=== PATIENT | female | born 1980 | race African-American/Black ===

== ENCOUNTER 2018-01-11 13:17 | Outpatient (CLI) | payer OTHER ==
--- NOTE | 2018-01-11 14:07 | RAD ---
LEFT FOOT THREE VIEWS: Comparison: 04-17-10 History: Pain. FINDINGS: Lisfranc alignment is maintained. Joint spaces are preserved. No fracture. IMPRESSION: No fracture. POS: JOHN
== END 2018-01-11 13:18 | disposition home or self-care (01) ==
LOC: RAD-FRANK 13:17
PROVIDERS: ATTEND Internal Medicine
DX: S99.929A Unspecified injury of unspecified foot, initial encounter (principal)

== ENCOUNTER 2018-04-14 08:37 | Emergency (ER) | payer SELFPAY ==
[2018-04-14] MEDS ORDERED: HYDROcodone/Acetaminophen 7.5/325 mg Tablet ONE (09:31)
--- NOTE | 2018-04-14 09:36 | RAD ---
RADIOGRAPH LEFT ANKLE 3 VIEWS: Date: 04/14/18 HISTORY: 37-year-old female status post traumatic injury to the left ankle. FINDINGS: There is a tiny triangular fracture fragment mildly inferiorly displaced from the distal tip of the l ateral malleolus. There is overlying lateral soft tissue swelling, and also mild anterior soft tissue swelling. Ankle mortise is symmetrical. The talar dome is maintained. There is no other fracture. IMPRESSION: Acute, traumatic, mildly displaced avulsion fracture of distal tip of lateral malleolus. POS: JOHN
== END 2018-04-14 10:14 | disposition home or self-care (01) ==
LOC: ERS 08:37
DX: S82.62XA Displaced fracture of lateral malleolus of left fibula, initial encounter for closed fracture (principal); I10 Essential (primary) hypertension; J45.909 Unspecified asthma, uncomplicated; X50.0XXA Overexertion from strenuous movement or load, initial encounter

== ENCOUNTER 2018-07-10 18:24 | Emergency (ER) | payer SELFPAY | END 2018-07-10 19:07 | disposition home or self-care (01) | LOC: ERS 18:24 | DX: H10.9 Unspecified conjunctivitis (principal); I10 Essential (primary) hypertension; J45.909 Unspecified asthma, uncomplicated | CPT/HCPCS: 99283 ==

== ENCOUNTER 2018-07-12 12:15 | Emergency (ER) | payer SELFPAY ==
[2018-07-12] MEDS ORDERED: Fluorescein Opthalmic Strip ONE (13:03)
[2018-07-12] MEDS ORDERED: Proparacaine 0.5% Opth 15 ML BOT ONE (13:03)
[2018-07-12] MEDS ORDERED: Sulfameth/Trimethoprim DS 800-160mg TAB ONE (13:48)
[2018-07-12] MEDS ORDERED: levETIRAcetam 500 MG/100 ML PREMIX BAG ONE (13:48)
[2018-07-12] MEDS ORDERED: Cephalexin 250 MG CAP ONE (13:49)
== END 2018-07-12 13:54 | disposition home or self-care (01) ==
LOC: ERS 12:15
DX: H11.423 Conjunctival edema, bilateral (principal); H10.9 Unspecified conjunctivitis; I10 Essential (primary) hypertension; J45.909 Unspecified asthma, uncomplicated
CPT/HCPCS: 99282; J1953

== ENCOUNTER 2018-10-27 17:49 | Emergency (ER) | payer SELFPAY ==
[2018-10-27 18:56] LABS: Hemoglobin 13.4 g/dL (12.0-16.0); Red Blood Cell (RBC) Count 4.71 mill/uL (4.20-5.40); White Blood Cell (WBC) Count 6.9 thou/uL (4.8-10.8)
[2018-10-27 18:57] LABS: #Basophils 0.1 thou/uL (0.0-0.2); #Eosinphils 0.1 thou/uL (0.0-0.7); #Lymphocytes 1.8 thou/uL (1.20-3.40); #Monocytes 0.3 thou/uL (0.11-0.59); #Neutrophils 4.7 thou/uL (1.40-6.50); %Basophils 0.8 % (0.0-1.0); %Eosinophils 1.2 % (0.0-10.0); %Lymphocytes 25.5 % (21.0-51.0); %Monocytes 3.8 % (0.0-10.0); %Neutrophils 68.8 % (42.0-75.0); Mean Corpuscular HGB CONC 31.8 g/dL (32.0-36.0); Mean Corpuscular Hemoglobin 28.5 pg (27.0-31.0); Mean Corpuscular Volume 89.6 fL (78.0-98.0); Mean Platelet Volume 8.1 fL (7.4-10.4); Platelet Count 228 thou/uL (130-400); RBC Distribution Width 11.6 % (11.5-14.5)
[2018-10-27 19:17] LABS: ALT (SGPT) 11 U/L (8-55); AST (SGOT) 11 U/L (5-34); Albumin 4.4 g/dL (3.5-5.0); Alkaline Phosphatase 58 U/L (40-150); Anion Gap 12 mmol/L (10-20); BUN (Urea Nitrogen) 8 mg/dL (7.0-18.7); Bilirubin, Total 0.3 mg/dL (0.2-1.2); Calc. Creatinine Clearance 0 mL/min (70-130); Calcium 9.8 mg/dL (7.8-10.44); Carbon Dioxide 25 mmol/L (22-29); Chloride 105 mmol/L (98-107); Estimated GFR-MDRD 73; Globulin 3.7 g/dL (2.4-3.5); Glucose 82 mg/dL (70-105); Potassium 3.9 mmol/L (3.5-5.1); Protein, Total 8.1 g/dL (6.0-8.3); Sodium 138 mmol/L (136-145)
[2018-10-27] MEDS ORDERED: Acetaminophen 325 MG Suppository ONE (19:52)
[2018-10-27] MEDS ORDERED: Acetaminophen 325 MG TAB ONE (19:53)
[2018-10-27] MEDS ORDERED: diphenhydrAMINE 50 MG/ML VIAL ONE (20:32)
[2018-10-27] MEDS ORDERED: Metoclopramide HCl 10 MG/2 ML VIAL ONE (20:46)
== END 2018-10-27 21:42 | disposition home or self-care (01) ==
LOC: ERS 17:49
DX: R51 Headache (principal); J45.909 Unspecified asthma, uncomplicated; I10 Essential (primary) hypertension
CPT/HCPCS: 36415; 80053; 85025; 96361; 96374; 96375; J1200; J2765

== ENCOUNTER 2019-01-25 00:20 | Emergency (ER) | payer SELFPAY ==
[2019-01-25 01:08] LABS: #Monocytes 0.4 thou/uL (0.11-0.59); #Neutrophils 5.4 thou/uL (1.40-6.50); %Basophils 0.4 % (0.0-1.0); %Eosinophils 0.2 % (0.0-10.0); %Lymphocytes 14.1 % (21.0-51.0); %Monocytes 5.6 % (0.0-10.0); %Neutrophils 79.8 % (42.0-75.0); Hemoglobin 14.8 g/dL (12.0-16.0); Mean Corpuscular HGB CONC 32.5 g/dL (32.0-36.0); Mean Corpuscular Hemoglobin 28.2 pg (27.0-31.0); Mean Corpuscular Volume 86.9 fL (78.0-98.0); Mean Platelet Volume 8.2 fL (7.4-10.4); Platelet Count 230 thou/uL (130-400); RBC Distribution Width 11.3 % (11.5-14.5); Red Blood Cell (RBC) Count 5.25 mill/uL (4.20-5.40); White Blood Cell (WBC) Count 6.7 thou/uL (4.8-10.8)
[2019-01-25 01:17] LABS: BHCG - Serum Negative (NEGATIVE); Pregs Control Background? CLEAR/WHITE (CLR/WHITE); Pregs Control Bar Appear? YES (CONTROL BAR)
[2019-01-25 01:30] LABS: ALT (SGPT) 11 U/L (8-55); AST (SGOT) 12 U/L (5-34); Albumin 4.6 g/dL (3.5-5.0); Alkaline Phosphatase 68 U/L (40-150); Anion Gap 14 mmol/L (10-20); BUN (Urea Nitrogen) 11 mg/dL (7.0-18.7); Bilirubin, Total 0.6 mg/dL (0.2-1.2); Calc. Creatinine Clearance 0 mL/min (70-130); Calcium 9.7 mg/dL (7.8-10.44); Carbon Dioxide 23 mmol/L (22-29); Chloride 101 mmol/L (98-107); Estimated GFR-MDRD 74; Globulin 4.1 g/dL (2.4-3.5); Glucose 119 mg/dL (70-105); Lipase 32 U/L (8-78); Potassium 3.8 mmol/L (3.5-5.1); Protein, Total 8.7 g/dL (6.0-8.3); Sodium 134 mmol/L (136-145)
[2019-01-25] MEDS ORDERED: Metoclopramide HCl 10 MG/2 ML VIAL ONE (01:42)
[2019-01-25] MEDS ORDERED: Dicyclomine 20 MG TAB ONE (01:42)
[2019-01-25 02:48] LABS: Bilirubin Small (Negative); Blood, Urine Negative (Negative); Clarity CLOUDY (Clear); Glucose, Urine (Dipstick) Negative (Negative); Leukocyte Negative (Negative); Nitrite Negative (Negative); Protein, Urine (Dipstick) Trace mg/dL (Neg-Trace); Specific Gravity, Urine 1.029 (1.002-1.036)
== END 2019-01-25 04:23 | disposition home or self-care (01) ==
LOC: ERS 00:20
DX: R11.2 Nausea with vomiting, unspecified (principal); R19.7 Diarrhea, unspecified; I10 Essential (primary) hypertension; Z79.899 Other long term (current) drug therapy
CPT/HCPCS: 36415; 80053; 81003; 83690; 84703; 85025; 87086; 96365; 96372; J0500; J2765

== ENCOUNTER 2019-04-09 16:03 | Emergency (ER) | payer MEDICAID, SELFPAY ==
[2019-04-09] MEDS ORDERED: traMADol HCl 50 MG TAB ONE (16:20)
--- NOTE | 2019-04-09 16:32 | RAD ---
XR Foot Rt 3 View STANDARD History: Injury Comparison: Radiograph 2014 Findings: No acute fracture or malalignment. Os perineum is present. Soft tissues are unremarkable. L isfranc interval is maintained. Impression: No acute osseous abnormality.
== END 2019-04-09 16:49 | disposition home or self-care (01) ==
LOC: ERS 16:03
DX: S90.31XA Contusion of right foot, initial encounter (principal); I10 Essential (primary) hypertension; J45.909 Unspecified asthma, uncomplicated; W20.8XXA Other cause of strike by thrown, projected or falling object, initial encounter

== ENCOUNTER 2019-11-02 13:29 | Outpatient (CLI) | payer MEDICAID ==
--- NOTE | 2019-11-02 13:58 | ULT ---
TRANSABDOMINAL TRANSVAGINAL PELVIC ULTRASOUND DATE:: 11/02/2019 12:00 AM CLINICAL HISTORY: Abnormal uterine bleeding. COMPARISON: None. TECHNIQUE: Grayscale, color Doppler and spectral Doppler images were obtained of the pelvis see a tra nsabdominal and transvaginal approach FINDINGS: UTERUS: Size: 9.4 x 5.3 x 6.4 Mass: None Cervix: Within normal limits Endometrial Thickness: 13.1 mm. OVARIES: Size: Right measures 4.1 x 2.1 x 3.9 cm; Left measures 4.0 x 2.2 x 1.7 cm Mass: There is a right ovarian cyst measuring 2.2 x 1.9 cm. Flow: Normal CUL-DE-SAC: Minimal free fluid IMPRESSION: Right ovarian follicular cyst. Mild thickening of the endometrial stripe. Recommend correlation with phase of menstruation. Minimal free fluid in the cul-de-sac is likely physiologic in nature.
== END 2019-11-02 13:30 | disposition home or self-care (01) ==
LOC: BICULT 13:29
PROVIDERS: ATTEND Nurse Practitioner Women's Health
DX: N93.9 Abnormal uterine and vaginal bleeding, unspecified (principal); N83.01 Follicular cyst of right ovary; R93.89 Abnormal findings on diagnostic imaging of other specified body structures
CPT/HCPCS: 76856

== ENCOUNTER 2020-06-02 11:46 | Emergency (ER) | payer MEDICAID, SELFPAY ==
[2020-06-02 12:23] LABS: Bilirubin Negative (Negative); Blood, Urine Negative (Negative); Clarity Clear (Clear); Glucose, Urine (Dipstick) Normal (Negative); Ketone, Urine Negative (Negative); Leukocyte Negative Leu/uL (Negative); Nitrite Negative (Negative); Protein, Urine (Dipstick) Negative (Neg-Trace); Specific Gravity, Urine 1.014 (1.002-1.036); Urobilinogen Normal mg/dL (Less than 2)
[2020-06-02 12:24] LABS: Pregnancy Test - Urine (BHCG) Negative (Negative); Pregu Control Background? CLEAR/WHITE (CLR/WHITE); Pregu Control Bar Appear? YES (CONTROL BAR); Specific Gravity 1.014 (1.002-1.036)
[2020-06-02] MEDS ORDERED: Diazepam 5 MG TAB ONE (12:25)
[2020-06-02] MEDS ORDERED: Ketorolac Tromethamine 30 MG/ML VIAL ONE (12:26)
[2020-06-02] MEDS ORDERED: Dexamethasone 10 MG/ML VIAL ONE (12:26)
--- NOTE | 2020-06-02 13:12 | RAD ---
RADIOGRAPH LUMBAR SPINE 3 VIEWS: DATE: 06/02/2020. HISTORY: A 39-year-old female with low back pain and left lumbar radiculopathy. FINDINGS: Alignment is normal. Vertebral body heights and disc spaces are maintained. There is no evidence of fracture, significant osteophytes, or any other focal osseous abnormality. IMPRESSION: Normal. jn [] POS: JIN
== END 2020-06-02 13:12 | disposition home or self-care (01) ==
LOC: ERS 11:46
DX: M54.42 Lumbago with sciatica, left side (principal); I10 Essential (primary) hypertension; J45.909 Unspecified asthma, uncomplicated
CPT/HCPCS: 72100; 81003; 81025; 87086; 96372; J1100; J1885

== ENCOUNTER 2021-02-04 14:57 | Emergency (ER) | payer SELFPAY ==
[2021-02-04] MEDS ORDERED: Morphine 4 MG/ML VIAL ONE (15:41)
[2021-02-04 16:15] LABS: Bilirubin Negative (Negative); Blood, Urine Negative (Negative); Glucose, Urine (Dipstick) Negative (Negative); Ketone, Urine Negative (Negative); Leukocyte Negative (Negative); Nitrite Negative (Negative); Protein, Urine (Dipstick) Negative (Neg-Trace); Urobilinogen 0.2 mg/dL (Less than 2)
[2021-02-04 16:19] LABS: Bacteria/HPF None Seen HPF (None Seen); Clarity Clear (Clear); RBC/HPF 0-3 HPF (0-3); WBC/HPF 0-3 HPF (0-3)
[2021-02-04 16:22] LABS: #Basophils 0.1 thou/uL (0.0-0.2); #Eosinphils 0.2 thou/uL (0.0-0.7); #Monocytes 0.4 thou/uL (0.11-0.59); #Neutrophils 3.9 thou/uL (1.40-6.50); %Basophils 1.1 % (0.0-1.0); %Eosinophils 2.9 % (0.0-10.0); %Lymphocytes 39.2 % (21.0-51.0); %Monocytes 4.9 % (0.0-10.0); %Neutrophils 51.9 % (42.0-75.0); Hemoglobin 13.8 g/dL (12.0-16.0); Mean Corpuscular HGB CONC 32.5 g/dL (32.0-36.0); Mean Corpuscular Hemoglobin 28.4 pg (27.0-31.0); Mean Corpuscular Volume 87.6 fL (78.0-98.0); Mean Platelet Volume 8.5 fL (7.4-10.4); Platelet Count 247 thou/uL (130-400); RBC Distribution Width 11.4 % (11.5-14.5); Red Blood Cell (RBC) Count 4.86 mill/uL (4.20-5.40); White Blood Cell (WBC) Count 7.6 thou/uL (4.8-10.8)
[2021-02-04 16:31] LABS: BHCG - Serum Negative (NEGATIVE); Pregs Control Background? CLEAR/WHITE (CLR/WHITE); Pregs Control Bar Appear? YES (CONTROL BAR); Specific Gravity, Urine 1.007 (1.002-1.036)
[2021-02-04] MEDS ORDERED: cefTRIAXone\\ROCEPHIN 1 GM VIAL ONE (17:09)
[2021-02-04] MEDS ORDERED: Azithromycin 250 MG TAB ONE (17:09)
[2021-02-04 17:27] LABS: ALT (SGPT) 25 U/L (8-55); AST (SGOT) 19 U/L (5-34); Albumin 4.5 g/dL (3.5-5.0); Alkaline Phosphatase 80 U/L (40-110); Anion Gap 13 mmol/L (10-20); BUN (Urea Nitrogen) 7 mg/dL (7.0-18.7); Bilirubin, Total 0.5 mg/dL (0.2-1.2); CK (CPK) 143 U/L (29-168); Calc. Creatinine Clearance 0 mL/min (70-130); Calcium 9.5 mg/dL (7.8-10.44); Carbon Dioxide 24 mmol/L (22-29); Chloride 104 mmol/L (98-107); Glucose 81 mg/dL (70-105); Lipase 53 U/L (8-78); Potassium 3.6 mmol/L (3.5-5.1); Protein, Total 8.5 g/dL (6.0-8.3); Sodium 137 mmol/L (136-145)
[2021-02-06 22:55] LABS: Chlamydia by PCR Not Detected (NotDetected); GC by PCR Not Detected (NotDetected)
== END 2021-02-04 18:00 | disposition home or self-care (01) ==
LOC: ERS 14:57
DX: N72 Inflammatory disease of cervix uteri (principal); R10.2 Pelvic and perineal pain; I10 Essential (primary) hypertension; J45.909 Unspecified asthma, uncomplicated
CPT/HCPCS: 76856; 80053; 81003; 82550; 83690; 84703; 85025; 87480; 87491; 87510; 87591; 87660; 96365; 96375; J0696; J2270

== ENCOUNTER 2021-02-18 20:59 | Emergency (ER) | payer SELFPAY ==
[2021-02-18 21:51] LABS: #Eosinphils 0.2 thou/uL (0.0-0.7); #Lymphocytes 2.7 thou/uL (1.20-3.40); #Monocytes 0.3 thou/uL (0.11-0.59); #Neutrophils 3.6 thou/uL (1.40-6.50); %Basophils 0.5 % (0.0-1.0); %Eosinophils 3.3 % (0.0-10.0); %Lymphocytes 39.2 % (21.0-51.0); %Monocytes 4.6 % (0.0-10.0); %Neutrophils 52.4 % (42.0-75.0); Hemoglobin 12.9 g/dL (12.0-16.0); Mean Corpuscular HGB CONC 33.8 g/dL (32.0-36.0); Mean Corpuscular Hemoglobin 29.7 pg (27.0-31.0); Mean Corpuscular Volume 87.7 fL (78.0-98.0); Mean Platelet Volume 8.7 fL (7.4-10.4); Platelet Count 212 thou/uL (130-400); RBC Distribution Width 11.8 % (11.5-14.5); Red Blood Cell (RBC) Count 4.35 mill/uL (4.20-5.40); White Blood Cell (WBC) Count 6.8 thou/uL (4.8-10.8)
[2021-02-18 21:55] LABS: Bacteria/HPF None Seen HPF (None Seen); Bilirubin Negative (Negative); Blood, Urine 2+ (Negative); Clarity Clear (Clear); Glucose, Urine (Dipstick) Normal (Negative); Ketone, Urine Negative (Negative); Leukocyte Negative Leu/uL (Negative); Nitrite Negative (Negative); Protein, Urine (Dipstick) 20 mg/dL (Neg-Trace); RBC/HPF 0-3 HPF (0-3); Specific Gravity, Urine 1.034 (1.002-1.036); Urobilinogen Normal mg/dL (Less than 2); pH, Urine 5.5 (5.0-9.0)
[2021-02-18 22:00] LABS: BHCG - Serum Negative (NEGATIVE); Pregs Control Background? CLEAR/WHITE (CLR/WHITE); Pregs Control Bar Appear? YES (CONTROL BAR)
[2021-02-18 22:08] LABS: ALT (SGPT) 20 U/L (8-55); AST (SGOT) 17 U/L (5-34); Albumin 4.2 g/dL (3.5-5.0); Alkaline Phosphatase 66 U/L (40-110); Anion Gap 10 mmol/L (10-20); BUN (Urea Nitrogen) 8 mg/dL (7.0-18.7); Bilirubin, Total 0.3 mg/dL (0.2-1.2); Calc. Creatinine Clearance 0 mL/min (70-130); Calcium 8.8 mg/dL (7.8-10.44); Carbon Dioxide 26 mmol/L (22-29); Chloride 104 mmol/L (98-107); Globulin 3.7 g/dL (2.4-3.5); Glucose 117 mg/dL (70-105); Lipase 60 U/L (8-78); Potassium 3.4 mmol/L (3.5-5.1); Protein, Total 7.9 g/dL (6.0-8.3); Sodium 137 mmol/L (136-145)
== END 2021-02-18 22:38 | disposition home or self-care (01) ==
LOC: ERS 20:59
DX: R10.9 Unspecified abdominal pain (principal); R10.813 Right lower quadrant abdominal tenderness; I10 Essential (primary) hypertension; J45.909 Unspecified asthma, uncomplicated
CPT/HCPCS: 74176; 80053; 81003; 81015; 83690; 84703; 85025

== ENCOUNTER 2021-08-27 22:23 | Emergency (ER) | payer MEDICAID, SELFPAY ==
[2021-08-28] MEDS ORDERED: Metoclopramide HCl 10 MG TAB ONE (01:19)
[2021-08-28] MEDS ORDERED: diphenhydrAMINE 25 MG CAP ONE (01:19)
[2021-08-28 06:10] LABS: SARS-CoV-2 NAA Rapid Test DETECTED (NotDetected)
== END 2021-08-28 02:04 | disposition home or self-care (01) ==
LOC: ERS 22:23
DX: U07.1 COVID-19 (principal); I10 Essential (primary) hypertension; J45.909 Unspecified asthma, uncomplicated
CPT/HCPCS: 0240U; 99284

== ENCOUNTER 2022-02-02 12:54 | Emergency (ER) | payer MEDICAID, SELFPAY ==
[2022-02-02 13:37] LABS: #Basophils 0.1 thou/uL (0.0-0.2); #Eosinphils 0.2 thou/uL (0.0-0.7); #Lymphocytes 1.9 thou/uL (1.20-3.40); #Monocytes 0.2 thou/uL (0.11-0.59); #Neutrophils 2.8 thou/uL (1.40-6.50); %Eosinophils 3.3 % (0.0-10.0); %Lymphocytes 36.6 % (21.0-51.0); %Monocytes 4.6 % (0.0-10.0); %Neutrophils 54.4 % (42.0-75.0); Hemoglobin 13.5 g/dL (12.0-16.0); Mean Corpuscular HGB CONC 31.8 g/dL (32.0-36.0); Mean Corpuscular Volume 88.3 fL (78.0-98.0); Mean Platelet Volume 8.1 fL (7.4-10.4); Platelet Count 244 thou/uL (130-400); RBC Distribution Width 11.7 % (11.5-14.5); White Blood Cell (WBC) Count 5.2 thou/uL (4.8-10.8)
[2022-02-02 14:04] LABS: ALT (SGPT) 16 U/L (8-55); AST (SGOT) 14 U/L (5-34); Albumin 4.3 g/dL (3.5-5.0); Alkaline Phosphatase 70 U/L (40-110); Anion Gap 14 mmol/L (10-20); BUN (Urea Nitrogen) 7 mg/dL (7.0-18.7); Bilirubin, Total 0.5 mg/dL (0.2-1.2); Calc. Creatinine Clearance 0 mL/min (70-130); Carbon Dioxide 20 mmol/L (22-29); Chloride 106 mmol/L (98-107); Globulin 3.6 g/dL (2.4-3.5); Glucose 90 mg/dL (70-105); Lipase 45 U/L (8-78); Protein, Total 7.9 g/dL (6.0-8.3); Sodium 136 mmol/L (136-145)
== END 2022-02-02 15:19 | disposition home or self-care (01) ==
LOC: ERS 12:54
DX: R07.89 Other chest pain (principal); F43.9 Reaction to severe stress, unspecified; I10 Essential (primary) hypertension; J45.909 Unspecified asthma, uncomplicated
CPT/HCPCS: 36415; 71045; 80053; 83690; 84484; 85025; 93005; 94760

== ENCOUNTER 2022-04-18 10:24 | Emergency (ER) | payer SELFPAY ==
[2022-04-18] MEDS ORDERED: Lidocaine Viscous Sol 2% 15 ml UD Cup ONE (11:15)
[2022-04-18] MEDS ORDERED: Acetaminophen 500 MG TAB ONE (11:36)
== END 2022-04-18 13:34 | disposition home or self-care (01) ==
LOC: ERS 10:24
DX: K04.7 Periapical abscess without sinus (principal); K02.9 Dental caries, unspecified; I10 Essential (primary) hypertension
CPT/HCPCS: 70487

== ENCOUNTER 2022-05-23 16:05 | Emergency (ER) | payer SELFPAY ==
[2022-05-23] MEDS ORDERED: Dexamethasone 4 MG TAB ONE (16:46)
== END 2022-05-23 17:27 | disposition home or self-care (01) ==
LOC: ERS 16:05
DX: L25.9 Unspecified contact dermatitis, unspecified cause (principal); I10 Essential (primary) hypertension
CPT/HCPCS: 99282; J8540

== ENCOUNTER 2022-10-05 11:31 | Emergency (ER) | payer MEDICAID, SELFPAY ==
[2022-10-05 13:04] LABS: #Eosinphils 0.1 thou/uL (0.0-0.7); #Lymphocytes 2.2 thou/uL (1.20-3.40); #Monocytes 0.3 thou/uL (0.11-0.59); #Neutrophils 2.7 thou/uL (1.40-6.50); %Basophils 0.4 % (0.0-1.0); %Lymphocytes 40.8 % (21.0-51.0); %Monocytes 5.5 % (0.0-10.0); %Neutrophils 51.3 % (42.0-75.0); Hemoglobin 13.6 g/dL (12.0-16.0); Mean Corpuscular HGB CONC 31.8 g/dL (32.0-36.0); Mean Corpuscular Hemoglobin 27.5 pg (27.0-31.0); Mean Corpuscular Volume 86.4 fl (78.0-98.0); Mean Platelet Volume 9.3 fL (7.4-10.4); Platelet Count 195 10x3/uL (130-400); RBC Distribution Width 11.7 % (11.5-14.5); Red Blood Cell (RBC) Count 4.97 mill/uL (4.20-5.40); White Blood Cell (WBC) Count 5.3 10x3/uL (4.8-10.8)
[2022-10-05 13:16] LABS: BHCG - Serum Negative (NEGATIVE); Pregs Control Background? CLEAR/WHITE (CLR/WHITE); Pregs Control Bar Appear? YES (CONTROL BAR)
[2022-10-05 13:25] LABS: ALT (SGPT) 35 U/L (8-55); AST (SGOT) 23 U/L (5-34); Albumin 4.5 g/dL (3.5-5.0); Alkaline Phosphatase 93 U/L (40-110); Anion Gap 11 mmol/L (10-20); BUN (Urea Nitrogen) 10 mg/dL (7.0-18.7); Bilirubin, Total 0.3 mg/dL (0.2-1.2); Calc. Creatinine Clearance 0 mL/min (70-130); Calcium 9.8 mg/dL (7.8-10.44); Carbon Dioxide 20 mmol/L (22-29); Chloride 105 mmol/L (98-107); Estimated GFR 52; Globulin 4.2 g/dL (2.4-3.5); Glucose 366 mg/dL (70-105); Potassium 4.3 mmol/L (3.5-5.1); Protein, Total 8.7 g/dL (6.0-8.3); Sodium 132 mmol/L (136-145)
[2022-10-05] MEDS ORDERED: diphenhydrAMINE 50 MG/ML VIAL ONE (15:11)
[2022-10-05] MEDS ORDERED: diphenhydrAMINE 25 MG CAP ONE (15:11)
[2022-10-05] MEDS ORDERED: Metoclopramide HCl 10 MG/2 ML VIAL ONE (15:11)
== END 2022-10-05 16:30 | disposition home or self-care (01) ==
LOC: ERS 11:31
DX: E11.9 Type 2 diabetes mellitus without complications (principal); I10 Essential (primary) hypertension
CPT/HCPCS: 36415; 36416; 71045; 80053; 84484; 84703; 85025; 93005; 96374; 96375; J1200; J2765

== ENCOUNTER 2022-10-10 03:10 | Emergency (ER) | payer MEDICAID, SELFPAY ==
[2022-10-10] MEDS ORDERED: Morphine 4 MG/ML VIAL ONE (03:39)
[2022-10-10] MEDS ORDERED: Ondansetron PF 4 MG/2 ML Vial ONE (03:39)
[2022-10-10 04:11] LABS: #Eosinphils 0.1 thou/uL (0.0-0.7); #Lymphocytes 1.4 thou/uL (1.20-3.40); #Monocytes 0.3 thou/uL (0.11-0.59); #Neutrophils 2.9 thou/uL (1.40-6.50); %Basophils 0.4 % (0.0-1.0); %Eosinophils 2.6 % (0.0-10.0); %Lymphocytes 29.5 % (21.0-51.0); %Neutrophils 61.5 % (42.0-75.0); Mean Corpuscular HGB CONC 33.6 g/dL (32.0-36.0); Mean Corpuscular Hemoglobin 29.2 pg (27.0-31.0); Mean Corpuscular Volume 86.9 fl (78.0-98.0); Mean Platelet Volume 9.2 fL (7.4-10.4); Platelet Count 180 10x3/uL (130-400); RBC Distribution Width 11.6 % (11.5-14.5); Red Blood Cell (RBC) Count 4.47 mill/uL (4.20-5.40); White Blood Cell (WBC) Count 4.7 10x3/uL (4.8-10.8)
[2022-10-10 04:39] LABS: ALT (SGPT) 41 U/L (8-55); AST (SGOT) 31 U/L (5-34); Albumin 4.2 g/dL (3.5-5.0); Alkaline Phosphatase 85 U/L (40-110); Anion Gap 15 mmol/L (10-20); BUN (Urea Nitrogen) 13 mg/dL (7.0-18.7); Bilirubin, Total 0.4 mg/dL (0.2-1.2); Calc. Creatinine Clearance 0 mL/min (70-130); Calcium 9.5 mg/dL (7.8-10.44); Carbon Dioxide 21 mmol/L (22-29); Chloride 102 mmol/L (98-107); Estimated GFR 61; Globulin 3.6 g/dL (2.4-3.5); Glucose 322 mg/dL (70-105); Lipase 68 U/L (8-78); Magnesium 1.9 mg/dL (1.6-2.6); Potassium 4.3 mmol/L (3.5-5.1); Protein, Total 7.8 g/dL (6.0-8.3); Sodium 134 mmol/L (136-145)
[2022-10-10 04:52] LABS: Bacteria/HPF 1+ HPF (None Seen); Bilirubin Negative (Negative); Blood, Urine 1+ (Negative); Clarity Clear (Clear); Glucose, Urine (Dipstick) 500 mg/dL (Negative); Ketone, Urine Negative (Negative); Leukocyte Negative Leu/uL (Negative); Nitrite Negative (Negative); Protein, Urine (Dipstick) 20 mg/dL (Neg-Trace); RBC/HPF None Seen HPF (0-3); Specific Gravity, Urine 1.011 (1.002-1.036); Squamous Epithelial 0-3 HPF (0-3); Urobilinogen Normal mg/dL (Less than 2); WBC/HPF 0-3 HPF (0-3)
[2022-10-10 05:05] LABS: SARS-CoV-2 NAA Rapid Test Not Detected (NotDetected)
[2022-10-10] MEDS ORDERED: HYDROcodone/Acetaminophen 5/325 mg Tablet ONE (05:11)
== END 2022-10-10 05:19 | disposition home or self-care (01) ==
LOC: ERS 03:10
DX: R07.89 Other chest pain (principal); I10 Essential (primary) hypertension; E11.9 Type 2 diabetes mellitus without complications; Z20.822 Contact with and (suspected) exposure to COVID-19
CPT/HCPCS: 36415; 71045; 80053; 81003; 81015; 83690; 83735; 83880; 84484; 85025; 93005; 96374; 96375; J2270; J2405; U0002

== ENCOUNTER 2023-08-02 09:12 | Outpatient (CLI) | payer MEDICAID | END 2023-08-02 09:13 | disposition home or self-care (01) | LOC: BICMAMMO 09:12 | PROVIDERS: ATTEND Nurse Practitioner Family | DX: N63.20 Unspecified lump in the left breast, unspecified quadrant (principal) | CPT/HCPCS: 77066; G0279 ==

== ENCOUNTER 2023-09-27 08:28 | Emergency (ER) | payer MEDICAID, SELFPAY ==
[2023-09-27] MEDS ORDERED: traMADol HCl 50 MG TAB ONE (09:25)
== END 2023-09-27 10:14 | disposition home or self-care (01) ==
LOC: ERS 08:28
DX: S93.401A Sprain of unspecified ligament of right ankle, initial encounter (principal); I10 Essential (primary) hypertension; E11.9 Type 2 diabetes mellitus without complications; X50.1XXA Overexertion from prolonged static or awkward postures, initial encounter